=== PATIENT | male | born 1960 | race Caucasian/White ===

== ENCOUNTER 2018-01-30 20:18 | Inpatient (IN) | payer MEDICAID ==
[~2018-01-30] VITALS: Ht 162.6 cm; Wt 97.1 kg
[2018-01-30 21:50] VITALS: BP 129/89
--- NOTE | 2018-01-30 23:20 | NUR ---
RECEIVED REPORT ON PT FROM [facility] FROM NURSE HAMMOND. AT 2119 , PT ARRIVED FROM [facility] ON PRIVATE VEHICLE ACCOMPANIED BY SISTER AND NEPHEW. PT AMBULATES TO HIS ROOM. ALERT AWAKE ORIENTED X4. COOPERATIVE. VITALS SIGNS WITHIN NORMAL LIMT ON O2 SATURATION IS 93% on 2 l NC. COMPLAIN OF PAIN IN LEFT LOWER BACK WHEN COUGHING. TYLENOL TO BE GIVEN WHEN READY. PT STATES THAT HE HAS LOST 50 LBS IN THE PAST MONTHS, AND SOB HAS BEEN GOING ON FOR 4 DAYS. ASSESSEMENT PERFORMED AT BEDSIDE. LUNG SOUNDA ARE DIMINISHED. PT DID RECEIVE LASIX AT PREVIOUS FACILITY AND IS URINATING FRQUENTLY. ADMISSION HX OBTAINED REFER TO CHARTING. INFORMATION RECEIVED FORM PT AND FAMILY. PULMONARY CONSULT WAS CALLED ORDERED. MESSAGE LEFT OT ANSWERING [employer]NACE OPERATOR. AWAITNG CALL BACK FORM PHYSICIAN. DR DUNBAR WAS CALLED AND RECEIVED NEW ORDERS THAT WERE READ FROM PT CHART. LABS TO BE DRAWNED IN THE MORNING. PT SEEMS COMFORTABLE. HEAD OF BED ELEVATED TO PROMOTE CLEAR RESPIRATION. SCDS IN PLACE. MEDICATION TO BE ADMINISTERED ORDERED. SINUS TACHY ON THE MONITOR. RATE IN CONTROLED IN LOW 100S. SKIN IS INTACT. PT AMBULATES INDEPENDENTLY TO RESTROOM.
[2018-01-31] VITALS: BP 123/75
[2018-01-31 00:01] LABS: ABSOLUTE BASOPHILS 0.1 thou/uL (0.0-0.2); ABSOLUTE EOSINOPHILS 0.2 thou/uL (0.0-0.7); ABSOLUTE LYMPHOCYTES 1.1 thou/uL (0.8-5.3); ABSOLUTE MONOCYTES 1.1 thou/uL (0.0-1.2); ABSOLUTE NEUTROPHILS 7.1 thou/uL (1.6-8.1); BASOPHILS 0.8 %; EOSINOPHILS 2.5 %; HEMATOCRIT 43.8 % (42.0-52.0); HEMOGLOBIN 14.4 gm/dL (14.0-18.0); MCH 29.2 pg (26.0-34.0); MCHC 32.9 g/dL (28.0-37.0); MCV 88.8 fL (80.0-100.0); MONOCYTES 11.8 %; NUCLEATED RBCS 0 /100WBC; PLATELET COUNT* 421 thou/uL (150-400); POLYS 73.9 %; RBC 4.93 mil/uL (4.50-6.00); RDW-CV 13.7 % (10.5-14.5); WBC 9.6 thou/uL (4.0-11.0)
[2018-01-31 00:24] LABS: ALBUMIN 2.5 g/dL (3.4-5.0); CALCIUM 10.8 mg/dL (8.5-10.1); CREATININE 2.1 mg/dL (0.6-1.3); TOTAL BILIRUBIN 0.5 mg/dL (<0.1-1.0); TOTAL PROTEIN 8.5 g/dL (6.4-8.2)
[2018-01-31 04:00] VITALS: BP 130/68
[2018-01-31 05:26] LABS: ABSOLUTE BASOPHILS 0.1 thou/uL (0.0-0.2); ABSOLUTE EOSINOPHILS 0.3 thou/uL (0.0-0.7); ABSOLUTE LYMPHOCYTES 1.2 thou/uL (0.8-5.3); ABSOLUTE MONOCYTES 1.2 thou/uL (0.0-1.2); ABSOLUTE NEUTROPHILS 6.3 thou/uL (1.6-8.1); BASOPHILS 0.9 %; EOSINOPHILS 3.4 %; HEMATOCRIT 42.2 % (42.0-52.0); HEMOGLOBIN 13.9 gm/dL (14.0-18.0); LYMPHOCYTES 13.4 %; MCH 29.2 pg (26.0-34.0); MCV 88.5 fL (80.0-100.0); MONOCYTES 12.6 %; MPV 8.2 fl. (7.2-11.1); NUCLEATED RBCS 0 /100WBC; PLATELET COUNT* 408 thou/uL (150-400); POLYS 69.7 %; RBC 4.77 mil/uL (4.50-6.00); RDW-CV 13.6 % (10.5-14.5); WBC 9.1 thou/uL (4.0-11.0)
[2018-01-31 05:37] LABS: CALCIUM 10.8 mg/dL (8.5-10.1); POTASSIUM 4.3 mmol/L (3.5-5.1)
--- NOTE | 2018-01-31 07:30 | NUR ---
ASSUMED CARE OF PT ASSESSED AND DOCUMENTED. PT IS ON CARDIAC MONITER TRACING SR. HE IS ON 2L OF 02. PT IS A&O WITH NO C/O PAIN. VSS WNL. PT IS AFEBRILE. BED IS IN LOW POSITION CALL LIGHT IS IN REACH.
[2018-01-31 08:00] VITALS: BP 125/77
[2018-01-31 11:54] VITALS: BP 127/75
--- NOTE | 2018-01-31 11:55 | NUR ---
Pt is A&O. Resides at home alone. 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 Pt stated that he had [employer] health insurance, up until August, when he was dropped d/t his plan not being available any longer. Pt stated that he was paying $850/month for his insurance. Pt stated that [facility] was not able to locate another plan that would work for Pt. Pt does see Dr Brown, on a fee for service basis. No DME. No hx of HH or SNF. CM faxed facesheet to [facility], to determine if Pt would qualify for [place] [facility]. Following.
--- NOTE | 2018-01-31 13:07 | NUR ---
CALLED PHARMACY SPOKE WITH PATI. PT NEEDS INSULLIN.
[2018-01-31 15:54] VITALS: BP 112/66
--- NOTE | 2018-01-31 17:12 | NUR ---
PT HAS RESTED IN HIS ROOM. HE IS UP TO BEDSIDE CHAIR EATING DINNER. SPUTUM OBTAINED AND TAKEN TO LAB. EDUCATION GIVEN ON DEMAND. HOURLY ROUNDING COMPLETE. NEW ORDER FOR NS AT 75 NC HOUT X1DAY.
[2018-01-31 20:00] VITALS: BP 121/72
[2018-02-01] VITALS: BP 125/68
--- NOTE | 2018-02-01 03:59 | NUR ---
ASSUMED PT CARE AT 19:15 REPORT RECEIVED FROM NURSE. PT IS ALERT AWAKE ORIENTED X4. SINUS RYTHM ON THE MONITOR. NO COMPLAINT OF PAIN AT THIS MOMENT. MEDICATION WAS ADMINISTERED SCHEDULED. DID NOT NEED INSULIN PER HIS SLIDING SCALE. RECEIVED ZOSYN AT 2000 AND AT 04O0. HE REMAINS ON 2 L NC SATURATION IS 93%. ASSESSEMENT WAS PERFORMED AT BEDSIDE. REFER TO CHARTING. HE IS NOW RESTING IN BED. WILL CONTINIUE TO MONITOR DURING THE MORNING.
[2018-02-01 04:00] VITALS: BP 113/68
[2018-02-01 07:52] VITALS: BP 109/72
[2018-02-01 08:45] LABS: ALBUMIN 2.4 g/dL (3.4-5.0); CALCIUM 9.6 mg/dL (8.5-10.1); CREATININE 1.8 mg/dL (0.6-1.3); POTASSIUM 3.9 mmol/L (3.5-5.1); TOTAL BILIRUBIN 0.6 mg/dL (<0.1-1.0); TOTAL PROTEIN 6.7 g/dL (6.4-8.2)
[2018-02-01 12:00] VITALS: BP 130/67
[2018-02-01 15:42] VITALS: BP 124/76
--- NOTE | 2018-02-01 17:23 | NUR ---
ASSUMED CARE OF PT THIS AM ASSESSED AND DOCUMENTED. SEE CHART. PT HAS HAD NO S OR SX OF ADVERSE REACTION TO ABT. PT HAD 3U OF INSULLIN ITH HIS DINNER. VSS WNL. PT HAS BEEN AFEBRILE. HOURLY ROUNDING COMPLETE. EDUCATION GIVEN ON DEMAND.
[2018-02-01 19:34] VITALS: BP 133/84
[2018-02-02] VITALS: BP 115/68
[2018-02-02 04:00] VITALS: BP 144/88
[2018-02-02 04:34] LABS: HEMATOCRIT 40.1 % (42.0-52.0); HEMOGLOBIN 13.3 gm/dL (14.0-18.0); MCH 29.3 pg (26.0-34.0); MCHC 33.2 g/dL (28.0-37.0); MCV 88.2 fL (80.0-100.0); MPV 8.1 fl. (7.2-11.1); NUCLEATED RBCS 0 /100WBC; PLATELET COUNT* 371 thou/uL (150-400); RBC 4.55 mil/uL (4.50-6.00); RDW-CV 13.5 % (10.5-14.5); WBC 8.2 thou/uL (4.0-11.0)
--- NOTE | 2018-02-02 04:49 | NUR ---
PT AAOX4 RESP REG AND UNLAOBRED SKIN W/D NO ACUTE DISTRESS NOTED. O2 2L BNC INTACT. PT NOTED TO HAVE A COUGHWITH BLOOD TINGED SPUTUM. PT STATED HAS BEEN HAVING ALL DAY. RESP REG AND UNLABORED. PT IS CONCERNED IN THE CAUSE OF HIS ISSUES. VSS AND NO ACUTE CHANGES DURING SHIFT WILL CONTINUE TO MONITOR, TELEMETRY PACK INTACT WITH ALARMS SET.
[2018-02-02 04:59] LABS: CALCIUM 10.1 mg/dL (8.5-10.1); CREATININE 1.6 mg/dL (0.6-1.3); POTASSIUM 4.3 mmol/L (3.5-5.1)
[2018-02-02 05:11] LABS: ALBUMIN 2.4 g/dL (3.4-5.0); CALCIUM 9.5 mg/dL (8.5-10.1); CREATININE 1.6 mg/dL (0.6-1.3); PHOSPHORUS* 3.2 mg/dL (2.5-4.9); POTASSIUM 4.7 mmol/L (3.5-5.1)
[2018-02-02 05:30] LABS: ABSOLUTE LYMPHOCYTES 0.7 thou/uL (0.8-5.3); ABSOLUTE NEUTROPHILS 7.5 thou/uL (1.6-8.1); ANISOCYTOSIS 1+; PLATELET ESTIMATE ADEQUATE; POIKILOCYTOSIS 1+
[2018-02-02 08:00] VITALS: BP 137/78
--- NOTE | 2018-02-02 11:31 | CON ---
[address] [address] CONSULTATION Name: KEANU KAPOOR Room: [address] IN M.R.#: [id number] Admission: 01/30/18 Attend Phys: Huang Rodarte MD Discharge: Date of : 62 Report #: [id number] THIS REPORT FOR: //name// CC: Huang Nevarez [facility] DATE OF SERVICE: 02/01/2018 ATTENDING PHYSICIAN: Dr. Rodarte. PRIMARY CARE PHYSICIAN: Ronen Oreilly MD The patient is located in room 206. INDICATION FOR CONSULTATION: Left lung infiltrate and atelectasis, cough. CLINICAL SUMMARY: The patient is a pleasant 57-year-old male who was seen and evaluated in [place], then transferred to [place] yesterday. The patient had a 3-4 week history of cough, shortness of breath. He states he had a 50-pound weight loss with diuretics. He states he has also lost some muscle mass also. He has had some nonmassive hemoptysis and a cough for the last 4 weeks. He denies any fever, chills or sweats. He does notice he has been more short of breath at that time. He was seen by the physician in [place], had a chest x-ray, showed left lung atelectasis and then was transferred here. He had a CT of the abdomen done here, and he just had a CT of the chest done this morning, its results are not back yet on the computer screen yet. He is a little bit more short of breath. He thinks the breathing treatments do help him. He has been coughing up some phlegm. He has been on 2 liters with a sat of 94%. We are asked to see him and evaluate him for a possible bronchoscopy. He has no prior history of lung cancer, any other cancers that he is aware of. PAST MEDICAL HISTORY: He has a history of hypertension. He has some chronic renal insufficiency, which is a new onset. He also has some mild glucose intolerance. He has been on some oral hypoglycemics. He is not on any insulin, and he also has some mild hyperlipidemia. This all occurred within the last month or two. ALLERGIES: He has no known medical allergies. CURRENT MEDICATIONS: Include he is on Lovenox 30 mg at bedtime and metoprolol 25 mg daily, aspirin 81 mg daily, amlodipine 5 mg daily, Protonix 40 mg daily, DuoNeb treatments 4 times a day. He is on Zosyn 3.375 grams IV q.8 hours., [place] [address] CONSULTATION Name: KEANU KAPOOR Room: [address] IN .R.#: [id number] Admission: 01/30/18 Attend Phys: Huang Rodarte MD Discharge: Date of : 62 Report #: [id number] FAMILY HISTORY: Negative for premature cardiopulmonary disease. No history of lung cancer. SOCIAL HISTORY: He is and lives outside [place]. 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 He denies any asbestos exposure. He has always been a fairly heavy tobacco chewer of 4-5 packs of snuff a day. He states he has never smoked cigarettes or tobacco. He has been doing this for 40 years though. He will have occasional beer socially. Denies any illicit drug use. No history of travel or sick or ill contacts recently. REVIEW OF SYSTEMS: A 14-point review of systems reviewed and negative except for the pertinent positives noted in HPI. PHYSICAL EXAMINATION: GENERAL: A pleasant 57-year-old male, in no acute distress. He is lying in bed and can talk to me in full sentences. VITAL SIGNS: His blood pressure is 110/72, his heart rate is 90, respirations are 16, and he is afebrile at this time. He is 5 feet 8 inches tall, weight is 92 kilograms or about 210 pounds, BMI is 35. HEENT: Pupils are reactive. Mucous membranes are moist, no increase in jugular venous pressure. NECK: No cervical or supraclavicular adenopathy is noted. CHEST: Shows diminished breath sounds on his left thorax without any wheeze or rhonchi. No inspiratory stridor is noted. Right lung exam is clear without any expiratory wheeze. HEART: Regular rate and rhythm without murmur, gallop or rub. Heart rate is 94. ABDOMEN: Soft, without masses or megaly. EXTREMITIES: No calf tenderness. No cyanosis, clubbing or edema. SKIN: Dry and intact. NEUROLOGIC: He is nonfocal. He moves all fours to commands, can lift his head off the pillow without problems. He has good strength in his upper and lower extremities. LABORATORY DATA: Hemoglobin is 13.9, white count is 9100, normal differential, platelets are 408,000. Electrolytes are drawn this morning, show sodium 137, potassium 3.9, carbon dioxide is 23, anion gap is upper limits of normal at 14. BUN is 54, creatinine is 1.8. Previous BUN was 65, with a creatinine of 2.0. His glucose is 130, ALT is slightly elevated at 72 and alkaline phosphatase is elevated at 192. Albumin is 2.4. No ABGs on the patient. CT of the abdomen and pelvis, which I reviewed, shows at least left lower lobe atelectasis and cut down on the higher thoracic cuts. You can see the mike and then see the left mainstem bronchus. The left lower lobe bronchus seems like it cuts off abruptly. I do not see an actual mass lesion, but there is a cutoff sign. There was then total atelectasis and volume loss on the left side. Same with the chest x-ray, there is volume loss and mediastinal shift [place] [address] CONSULTATION Name: KEANU KAPOOR Room: [address] IN ..#: [id number] Admission: 01/30/18 Attend Phys: Huang Rodarte MD Discharge: Date of : 62 Report #: [id number] adenopathy is seen on the right. IMPRESSION: Left lung mass with atelectasis, most likely has left lower lobe endobronchial lesion or left mainstem endobronchial lesion. Could be a benign polyp such as a carcinoid lesion or something of that nature. Certainly, with his tobacco use, again worried about squamous cell carcinoma with endobronchial narrowing and endobronchial obstruction. PLAN: We will give a few doses of IV steroids. Renal has seen the patient, and they are trying to get his BUN and creatinine to come down. We will set him up in a day or two for fiberoptic bronchoscopy, most likely on Tuesday and see if we can find endobronchial lesion. We will obtain some biopsies and some specimens. It would be better to have him off the subcutaneous Lovenox and the aspirin at that time. I discussed the indications, benefits and risks of the procedure to see if we can get a tissue diagnosis and make sure it is not just something benign like mucus plugging. I think that will not be the situation now. Thanks again for allowing us to participate in this man's care. We will continue to follow up along with you. <ELECTRONICALLY SIGNED> By: Duke Márquez MD 02/02/18 1131 1222 [id number] Márquez MD /nt
--- NOTE | 2018-02-02 11:58 | NUR ---
RECEIVED REPORT FROM DONTE JARVIS. ASSUMED CARE OF PT AROUND 0730. PT A&O X4. VSS. O2 SAT 92% ON 2L PER NC. DISPLAY SCREEN FABRICATOR IN PLACE TRACING SR TO ST. AM ASSESSMENT AND VITALS COMPLETED CHARTED. IV TO LEFT HAND INTACT AND INFUSING IVF. MEDICAL RECORDS FROM CLINIC IN [place] CALLED TO DR. ARAGON REQUESTED. PT DENIES PAIN OR DISCOMFORT. PT TO HAVE BONE SCAN AND CHEST CT TODAY - PT AWARE. PT EATING AND DRINKING WITHOUT ISSUE. UA OBTAINED AND SENT TO TO LAB. PT CURRENTLY SITTING UP IN BED. LOW FALL RISK PRECAUTIONS IN PLACE. CALL LIGHT WITHIN REACH. HOURLY ROUNDING PERFORMED. WCTM.
[2018-02-02 12:16] VITALS: BP 137/73
[2018-02-02 12:44] LABS: URINE BILIRUBIN NEGATIVE (Negative); URINE BLOOD 1+ (Negative); URINE CLARITY CLEAR; URINE COLOR YELLOW; URINE GLUCOSE-RANDOM NEGATIVE (Negative); URINE KETONES TRACE (Negative); URINE LEUKOCYTES NEGATIVE (Negative); URINE NITRITE NEGATIVE (Negative); URINE PROTEIN TRACE (Negative); URINE SPECIFIC GRAVITY 1.015 (1.005-1.030); URINE UROBILINOGEN 0.2 E.U./dl (0.2-1.0)
[2018-02-02 13:17] LABS: BACTERIA 1-9 Few /HPF (None Seen); CASTS None Seen /LPF (None Seen); MUCUS 0-3 Light strn/LPF (None Seen); SQUAMOUS 0-3 Few /LPF (0-3); URIC ACID CRYSTALS >10 Many /LPF (None Seen); URINE RBC 0-2 Rare /HPF (0-2); URINE WBC 0-5 Rare /HPF (0-5)
--- NOTE | 2018-02-02 14:40 | NUR ---
Spoke with Pt's niece in law regarding insurance options. NIL to contact her asset accountant to see if she can assist with securing ins for Pt. RICKY left message for Ainsley with [employer].
[2018-02-02 16:08] VITALS: BP 121/63
--- NOTE | 2018-02-02 18:42 | NUR ---
VSS. PT REMAINS A&O X4. O2 SAT 92% ON 2L PER NC. PT COMPLTED MRI HEAD, BONE SCAN, CT CHEST, AND RENAL U/S THIS SHIFT. PT TO BE NPO AFTER MIDNIGHT FOR BRONCHOSCOPY TOMORROW MORNING. PT EATING AND DRINKING WIHTOUT ISSUE. PT UP AD ALLYSSA TO BATHROOM WITH O2 EXTENSION TUBING AND IV, VOIDING WITHOUT ISSUE. PT HAS SPOKEN WITH FAMILY ON CELL PHONE TODAY. PT HAS DENIED PAIN OR DISCOMFORT THROUGHOUT THE SHIFT. IV TO LEFT HAND INTACT AND INFUSING IVF. PT CURRENTLY WATCHING TV IN BED. CALL LIGHT IS WITHIN REACH, LOW FALL RISK PRECAUTIONS ARE IN PLACE. HOURLY ROUNDING PERFORMED. WCTM FOR DURATION OF SHIFT.
[2018-02-02 19:35] VITALS: BP 131/77
--- NOTE | 2018-02-02 22:55 | CON ---
[address] [address] CONSULTATION Name: KEANU KAPOOR Room: [address] IN .R.#: [id number] Admission: 01/30/18 Attend Phys: Huang Rodarte MD Discharge: Date of : 62 Report #: [id number] THIS REPORT FOR: //name// CC: Huang Brown DATE OF SERVICE: 02/01/2018 REASON FOR CONSULTATION: Possible lung cancer. HISTORY OF PRESENT ILLNESS: A 57-year-old male who was transferred from outside facility after he has been having symptoms of left-sided back pain with hemoptysis and shortness of breath. He underwent a CT scan on 01/30. However, there is volume loss on the left side with atelectasis and consolidation of the left lung. Trace of left pleural effusion with mediastinal shift to the left. Complete occlusion of the left mainstem bronchus. Trace effusion is present. Subcarinal adenopathy was present. Small aortopulmonary window lymph nodes present. The patient was admitted for a pulmonary evaluation and for possible bronchoscopy. The patient denies any headaches, seizure-like activity. He has been recently diagnosed with hypertension and diabetes. Per the patient, he was put on diuretics and he lost around 50 pounds in the last month. REVIEW OF SYSTEMS: All systems reviewed. It was negative except above. PAST MEDICAL HISTORY: Congestive heart failure, dyslipidemia, bicuspid aortic valve, hypertension, diabetes. PAST SURGICAL HISTORY: None. FAMILY HISTORY: Positive for hypertension, atherosclerosis. SOCIAL HISTORY: The patient chews tobacco for the last 42 years. He drinks 4-5 beers on a daily basis. ALLERGIES: No known allergies. PHYSICAL EXAMINATION: VITAL SIGNS: Today, temperature 36.6, pulse 94, respirations 18, blood pressure is 109/72. GENERAL: The patient was sitting in chair, was not in acute distress. LUNGS: No breathing sounds on the left side. HEART: Regular rate and rhythm. S1, S2 within normal limits. ABDOMEN: Soft, nontender, nondistended, bowel sounds positive. LABORATORY DATA: Labs on 01/31: WBC 9.1, hemoglobin 13.9, platelets [address] [address] CONSULTATION Name: KEANU KAPOOR Room: [address] IN [facility]#: [id number] Admission: 01/30/18 Attend Phys: Huang Rodarte MD Discharge: Date of : 62 Report #: [id number] Calcium is 10.8, creatinine 2.0. ALT is 38, AST 77, alkaline phosphatase 193. A chest x-ray, which was done yesterday, showed a whiteout of the left lung suggestive of atelectasis/pleural effusion. ASSESSMENT AND PLAN: A 57-year-old male who has been chewing tobacco for the last 42 years, was admitted because of a collapse of the left lung with endobronchial lesion and mediastinal adenopathy. His clinical picture is very concerning of lung cancer primary with mediastinal and malignant pleural effusion. In addition, he was found to have hypercalcemia. RECOMMENDATIONS: Agree with a Pulmonary consultation for bronchoscopy and to establish the diagnosis. In the meantime, I would like to complete staging by obtaining brain MRI with and without contrast, CT of the abdomen and bone scan. In terms of his hypercalcemia, it is more common in a small cell and squamous cell carcinoma. I do recommend repeating his calcium today and if still elevated, one dose of pamidronate will be needed. I will follow this patient during hospitalization. <ELECTRONICALLY SIGNED> By: Maria Elena Mcfadden MD 02/02/18 2255 0809 [id number] Elena Mcfadden MD /nt
[2018-02-03] VITALS (7 sets, daily range): BP systolic 120–152; BP diastolic 72–92
--- NOTE | 2018-02-03 00:11 | NUR ---
ASSUMED CARE OF PT AT 1900. PT IS ALERT AND ORIENTED. VSS. PERRLA. NO COMPLAINTS OF PAIN. PT IS SOA WITH EXERTION. CONSENT SIGNED FOR BRONCHOSCOPY. PT IS SLEEPING COMFORTABLY IN BED. RESPIRATIONS ARE EVEN AND NONLABORED. WILL CONTINUE TO MONITOR PT.
[2018-02-03 04:51] LABS: ABSOLUTE LYMPHOCYTES 0.5 thou/uL (0.8-5.3); ABSOLUTE MONOCYTES 0.6 thou/uL (0.0-1.2); ABSOLUTE NEUTROPHILS 13.3 thou/uL (1.6-8.1); HEMATOCRIT 38.7 % (42.0-52.0); HEMOGLOBIN 12.8 gm/dL (14.0-18.0); LYMPHOCYTES 3.5 %; MCHC 32.9 g/dL (28.0-37.0); MCV 88.1 fL (80.0-100.0); MONOCYTES 3.9 %; MPV 8.2 fl. (7.2-11.1); NUCLEATED RBCS 0 /100WBC; PLATELET COUNT* 372 thou/uL (150-400); POLYS 92.6 %; RDW-CV 13.6 % (10.5-14.5); WBC 14.3 thou/uL (4.0-11.0)
[2018-02-03 05:30] LABS: ALBUMIN 2.2 g/dL (3.4-5.0); CALCIUM 9.5 mg/dL (8.5-10.1); CREATININE 1.6 mg/dL (0.6-1.3); POTASSIUM 3.9 mmol/L (3.5-5.1); TOTAL BILIRUBIN 0.3 mg/dL (<0.1-1.0); TOTAL PROTEIN 7.1 g/dL (6.4-8.2)
[2018-02-03 10:13] LABS: GLYCOHEMOGLOBIN (HGB A1C) 7.8 % (4.8-5.6)
--- NOTE | 2018-02-03 10:35 | NUR ---
Krishan from [facility] attempted to reach Pt, Pt out of the room having bronch, CM asked Krishan to call back after lunch.
--- NOTE | 2018-02-03 17:08 | NUR ---
PT TO BRONCH THIS AM. PT TOLERATED WELL. PT UPSET ABOUT FINANCIAL STRAIN OF BEING IN HOSPITAL AND POSSIBLE CANCER. PT TOLERATING PO WELL AFTER BRONCH. DENIES NEEDS. REMAINS ON 02@2L NC. PT UP IN ROOM WITH STEADY GAIT
[2018-02-04] VITALS: BP 117/62
[2018-02-04 02:09] LABS: IgG 981 mg/dL (700-1600); IgM 54 mg/dL (20-172)
[2018-02-04 04:00] VITALS: BP 131/67
[2018-02-04 05:02] LABS: ABSOLUTE LYMPHOCYTES 0.8 thou/uL (0.8-5.3); ABSOLUTE MONOCYTES 1.1 thou/uL (0.0-1.2); ABSOLUTE NEUTROPHILS 10.8 thou/uL (1.6-8.1); BASOPHILS 0.1 %; HEMATOCRIT 37.5 % (42.0-52.0); HEMOGLOBIN 12.3 gm/dL (14.0-18.0); MCHC 32.9 g/dL (28.0-37.0); MCV 88.1 fL (80.0-100.0); MONOCYTES 8.9 %; MPV 8.3 fl. (7.2-11.1); NUCLEATED RBCS 0 /100WBC; PLATELET COUNT* 365 thou/uL (150-400); RBC 4.26 mil/uL (4.50-6.00); RDW-CV 13.4 % (10.5-14.5); WBC 12.7 thou/uL (4.0-11.0)
--- NOTE | 2018-02-04 05:24 | NUR ---
PATIENT PARTIALLY PROGRESSING TOWARDS GOALS: O2 SATS MAINTAINED ON 2L O2 NC. NO HEMOPTYSIS NOTED. PATIENT HAS C/O PAIN IN RIGHT KNEE PARTIALLY RELIEVED WITH ACETAMINOPHEN AND HEAT APPLICATION, HOWEVER, PATIENT HAS BEEN UNABLE TO SLEEP DUE TO PAIN. PATIENT OFFERED IV PAIN MEDICATION, HOWEVER, PATIENT REFUSING. PATIENT AD ALLYSSA, TOLERATING ACTIVITY WELL. HOURLY ROUNDING OBSERVED. CALL LIGHT WITHIN REACH
[2018-02-04 05:25] LABS: ALBUMIN 2.3 g/dL (3.4-5.0); CALCIUM 9.1 mg/dL (8.5-10.1); CREATININE 1.5 mg/dL (0.6-1.3); POTASSIUM 3.7 mmol/L (3.5-5.1); TOTAL BILIRUBIN 0.3 mg/dL (<0.1-1.0); TOTAL PROTEIN 6.7 g/dL (6.4-8.2)
[2018-02-04 07:07] LABS: IgA 346 mg/dL (90-386)
[2018-02-04 08:00] VITALS: BP 129/86
--- NOTE | 2018-02-04 08:48 | PROC ---
[address] [address] PROCEDURE REPORT Name: KEANU KAPOOR Room: [address] IN M.R.#: [id number] Admission: 01/30/18 Attend Phys: Huang Rodarte MD Discharge: Date of : 62 Report #: [id number] THIS REPORT FOR: //name// CC: Huang Mcfadden MD ____ ____ DATE OF SERVICE: 02/03/2018 PRIMARY CARE PHYSICIAN: , [place], [place]. PREOPERATIVE DIAGNOSES: Large left main stem lesion, left lung with left lung atelectasis, also has liver lesion and left adrenal lesion. POSTOPERATIVE DIAGNOSES: Large left main stem lesion, left lung with left lung atelectasis, also has liver lesion and left adrenal lesion, vascular appearing lesion that totally obstructs left main stem and propagates up into proximal trachea by two tracheal rings, vascular lesion, which was adherent to the anterior tracheal wall. Differentials include carcinoid lesion versus bronchogenic carcinoma. SPECIMENS: Biopsies obtained. Also, a cytology brush and wash. COMPLICATIONS: None. The patient is a 57-year-old male who states he is a nonsmoker, but chews tobacco. Has a 4-week history of cough, hemoptysis and shortness of breath. Chest x-ray and CT scan shows large left main stem lesion with left lung atelectasis with also a liver lesion and adrenal lesion. Bronchoscopy is indicated to evaluate for endobronchial lesion to obtain specimens. Indications, benefits, risks of bronchoscopy, possible biopsy were explained. He understood and agreed. Informed consent was obtained. Prior to the procedure, the patient's chest exam showed absent breath sounds on the left, clear breath sounds on the right. CV was in sinus tachycardia with heart rate of 104. He was mildly hypoxic on 2-3 liters, his sats were 93-94% and otherwise, he was stable. Appropriate verbal timeout was taken. It was correct procedure for the correct patient. Premedication consists of meperidine 50 mg, Robinul 0.1 mg IM and then midazolam 4 mg slow IV push preoperatively and intraoperatively in 1 mg increments. O2 was at 6 liters per nasal cannula and O2 sat did not drop below 89%, most of the time is 93% and above. Flexible fiberoptic bronchoscopy carried out via left transnasal route subsegmental level. Nasopharynx and vocal cords were [place] [address] PROCEDURE REPORT Name: KEANU KAPOOR Room: [address] IN M.R.#: [id number] Admission: 01/30/18 Attend Phys: Huang Rodarte MD Discharge: Date of : 62 Report #: [id number] oppose normally and there was no left vocal cord paralysis. Trachea was abnormal with an abnormal lesion in growth, exophytic mass emanating from the left mainstem and extending up into the distal two tracheal rings. The right lung could still be entered and the right lung was open and patent without any endobronchial lesions or mucosal abnormalities. This was a vascular-appearing lesion. There was some old blood around the lesion. The lesion was adherent to the anterior tracheal wall. I could not move it off the anterior tracheal wall, seen if it was a polypoid lesion, etc. Initially because the lesion was vascular, pictures were obtained and we did a bronchial brush through 3 slides and fix. We got good specimens on that and it was slightly bloody, but there was no vigorous bleeding. Then, endobronchial biopsies x 6 were obtained with a biopsy forceps. These were placed in formalin. Good specimen return was noted. I did this towards the anterior tracheal wall part of the lesion. It appeared to be where most of the possible tumor or growth was and stayed away from the clot-looking area. There was minimal amount of bleeding from this. We used 2 aliquots of Xylocaine with epinephrine to slow the bleeding. There was no further bleeding and then, third was a bronchial wash for cytology, which will be sent again to evaluate for carcinoid versus stage IV bronchogenic CA. Bronchoscope was then withdrawn without incident. The patient tolerated procedure well without complications. Working diagnosis at the end of procedure was large left mainstem and proximal tracheal lesion, either a carcinoid lesion or stage IV bronchogenic carcinoma. He is not a resection candidate. The patient is an inpatient and Oncology is already following the patient at this time. We will await the biopsy results and proceed from there. He may need some fairly rapid radiation therapy if it is amenable to see if we can shrink the tumor and keep his airway open. Bronchial stent may be another consideration at some point in time. He would have to be transferred for that. No other complications to the procedure. <ELECTRONICALLY SIGNED> By: Duke Márquez MD 02/04/18 0848 1102 [id number] Márquez MD /yesy
[2018-02-04 11:35] VITALS: BP 137/70
--- NOTE | 2018-02-04 12:18 | NUR ---
RECEIVED REPORT FROM NOAH JARVIS. ASSUMED CARE OF PT AROUND O730. PT A&OX4, VSS, O2 SAT 98% ON 2L PER NC. PT TIRED THIS MORNING, STATES HE DID NOT SLEEP WELL. PT EDUCATED THAT BENA[facility]YL MEDICATIN IS ON HIS EMAR AND THAT HE CAN REQUEST THAT AT NIGHT TIME TO ASSIST WITH SLEEP. PT COMMUNICATES UNDERSTANDING. VP CUSTOMER SERVICE IN PLACE TRACING ST. AM ASSESSMENT AND VITALS COMPLETED CHARTED. IV TO RIGHT AC INTACT AND INFUSING ANTIBIOTICS. PT EATING AND DRINKING WITHOUT ISSUE. PT ABLE TO BE UP AD ALLYSSA IN ROOM, O2 EXTENSION TUBING PROVIDED. PT AWAITING BRONCHOSCOPY BIOPSIES. PT DENIES PAIN OR DISCOMFORT AT THIS TIME - STATES HE RIGHT KNEE WAS HURTING LAST NIGHT BUT THAT IT IS "OKAY RIGHT NOW". PT CURRENTLY RESTING IN BED WATCHING TV. LOW FALL RISK PRECAUTIONS IN PLACE. HORULY ROUNDING PERFORMED. CALL LIGHT IS WITHN REACH. WCTM.
[2018-02-04 16:00] VITALS: BP 123/66
--- NOTE | 2018-02-04 18:28 | NUR ---
VSS. PT REMAINS A&O X4. O2 SAT >90% ON 2L PER NC. PT EATING AND DRINKING WITOUT ISSUE. MEDS PER EMAR. PT HAD FAMILY VISIT THIS AFTERNOON. PT COMPLAINED OF RIGHT KNEE PAIN - IV PAIN MEDICATION WITH RELIEF - PT FINALLY ABLE TO SLEEP. PT UP AD ALLYSSA TO VOID. BM THIS AM. PT SEEMS SAD THIS SHIFT - ASKED PT IF HE WAS FEELING BAD AND HE STATED "I'M JUST READY TO GET BACK HOME". REASSURANCE GIVEN. PT CURRENTLY RESTING IN BED. LOW FALL RISK PRECAUTIONS IN PLACE. CALL LIGHT IS WITHIN REACH, HOURLY ROUNDING PERFORMED. WCTM FOR DURATION OF SHIFT.
[2018-02-04 19:45] VITALS: BP 101/74
[2018-02-05] VITALS: BP 140/73
--- NOTE | 2018-02-05 03:21 | NUR ---
RECEIVED REPORT AND ASSUMED CARE AT 1900. VSS. CARDIAC MONITORING IN PLACE. PT DENIES ANY COMPLAINTS OF PAIN. ASSESSMENT COMPLETED CHARTED. MEDICATION ADMIN PER EMAR. PT UP AD ALLYSSA IN ROOM, 2LNC. BED IN LOWEST POSITION, CALL LIGHT WITHIN REACH. DISCUSSED PLAN OF CARE WITH PT, VERBALIZED UNDERSTANDING. HOURLY ROUNDING COMPLETED, ALL NEEDS MET. WILL CONTINUE TO MONITOR FOR REMAINDER OF THE SHIFT
[2018-02-05 04:00] VITALS: BP 136/76
[2018-02-05 08:00] VITALS: BP 118/71
[2018-02-05 12:21] VITALS: BP 120/70
[2018-02-05 16:06] VITALS: BP 120/70
--- NOTE | 2018-02-05 16:34 | NUR ---
PT UP IN ROOM WITH STEADY GAIT. REMAINS ON O2@2L NC. PT SOA WITH EXERTION. DENIES PAIN. GOOD APPETITE.
[2018-02-05 19:50] VITALS: BP 120/72
[2018-02-06] VITALS: BP 106/71
[2018-02-06 03:43] VITALS: BP 119/72
--- NOTE | 2018-02-06 06:12 | NUR ---
END SHIFT: PT RESTED WELL. NO COMPLAINTS. NO PAIN. REMAINS ON 2L NC. SR/ST ON MONITOR. ASSESSMENT UNCHANGED. VSS. SAFETY PRECAUTIONS IN PLACE. CALL LIGHT IN REACH. PERFORMED HOURLY ROUNDING. WILL CONT TO MONITOR.
[2018-02-06 08:00] VITALS: BP 116/82
--- NOTE | 2018-02-06 09:45 | NUR ---
CM met with Pt to discuss disposition. Pt stated that he wants to fight, he wants to live as long as he can. CM left lisa Schmitz at [facility], requesting that she make contact with Pt today, anticipate dc soon. Cm discussed possible need for home o2, Pt stated that he has a credit card and is able to afford the o2 if needed. Following for disposition.
[2018-02-06 10:35] LABS: HEMATOCRIT 41.1 % (42.0-52.0); HEMOGLOBIN 13.5 gm/dL (14.0-18.0); MCH 28.9 pg (26.0-34.0); MCHC 32.9 g/dL (28.0-37.0); MCV 87.7 fL (80.0-100.0); NUCLEATED RBCS 0 /100WBC; PLATELET COUNT* 329 thou/uL (150-400); RBC 4.68 mil/uL (4.50-6.00); RDW-CV 13.2 % (10.5-14.5); WBC 11.6 thou/uL (4.0-11.0)
[2018-02-06 10:37] LABS: ALBUMIN 2.3 g/dL (3.4-5.0); CREATININE 1.2 mg/dL (0.6-1.3); POTASSIUM 3.7 mmol/L (3.5-5.1); TOTAL BILIRUBIN 0.5 mg/dL (<0.1-1.0); TOTAL PROTEIN 6.2 g/dL (6.4-8.2)
[2018-02-06 11:10] LABS: ABSOLUTE BASOPHILS 0.1 thou/uL (0.0-0.2); ABSOLUTE LYMPHOCYTES 0.8 thou/uL (0.8-5.3); ABSOLUTE MONOCYTES 0.7 thou/uL (0.0-1.2); PLATELET ESTIMATE ADEQUATE
[2018-02-06 11:11] LABS: POIKILOCYTOSIS Occasional
--- NOTE | 2018-02-06 11:43 | NUR ---
VSS, ASSUMED CARE IN THE AM, ASSESSMENT PERFORMED AND CAHRTED. FALL PRECAUTIONS IN PLACE AND CALL LIGHT IN REACH, PT IS A&O4 AND ON 2L NC UP AD ALLYSSA AND DENIES ANY PAIN AT THIS TIME, PT GOAL IS TO IMPROVE BREATHING AND WALK UNIT, WILL FOLLOW WITH PLAN OF CARE.
[2018-02-06 12:27] VITALS: BP 131/78
[2018-02-06 15:31] VITALS: BP 118/78
[2018-02-06 17:10] LABS: KAPPA FREE LIGHT CHAINS 24.8 mg/L (3.3-19.4); LAMBDA FREE LIGHT CHAINS 15.4 mg/L (5.7-26.3)
--- NOTE | 2018-02-06 18:13 | NUR ---
vss, PT IS PROGRESSING TOWARDS GAOL, HIS BREATHING HAS IMPROVED AND HE HAS BEEN UP IN ROOM, PT IS STILL TRACING SR ON THE MONITOR AND IS ON 1L NC, PT DENIES ANY PAIN, AND HOURLY ROUNDS HAVE BEEN COMPLETED,
[2018-02-06 20:00] VITALS: BP 138/85
[2018-02-07] VITALS: BP 113/76
[2018-02-07 04:00] VITALS: BP 132/77
--- NOTE | 2018-02-07 06:04 | NUR ---
PATIENT SLEPT MOST OF THE NIGHT. IV ANTIBIOTICS WERE GIVEN ORDERED. PATIENT HAD NO COMPLAINTS OF PAIN. PATIENT IS POSSIBLY GOING HOME TODAY. WILL CONTINUE TO MONITOR.
[2018-02-07 08:00] VITALS: BP 125/85
[2018-02-07] MEDS ORDERED: NORCO 5-325 TA1 EACH PO (10:47)
[2018-02-07] MEDS ORDERED: PREDNISONE 10 M10 MG PO (11:02)
[2018-02-07] MEDS ORDERED: AUGMENTIN 875-1 EACH PO (11:05)
[2018-02-07] MEDS ORDERED: PROTONIX40 M1 PO (11:07)
[2018-02-07] MEDS ORDERED: IPRAT-ALBUT 0.5-3 ML INH (11:16)
[2018-02-07] MEDS ORDERED: NEBULIZER MISCELL (11:17)
[2018-02-07] MEDS ORDERED: ALBUTEROL SULFAT2 MG PO (11:21)
[2018-02-07] MEDS ORDERED: GLUCOTROL5 MG PO (11:23)
[2018-02-07] MEDS ORDERED: COZAAR 25 MG TA25 M1 PO (11:26)
--- NOTE | 2018-02-07 12:00 | NUR ---
VSS, ASSUMED CARE IN THE AM, ASSESSMENT PERFORMED AND CHARTED, FALL PRECAUTIONS IN PLACE AND CALL LIGHT IN REACH, PT IS A&O4, SR ON THE MONITOR, AND UP AD ALLYSSA ON RA O2 NEEDS, NONE, PT DENIES ANY PAIN, PT GOAL IS TO D/C TO HOME ON DAY OF CARE. AT THIS TIME I HAVE RECIEVED D/C OEDERS AND FILLED OUT D/C INSTRUCTIONS. GAVE D/C INSTRUCTIONS AND AND MEDICATIONS INSTRUCTIONS, IV AND TELE MONITOR HAVE BEEN REMOVED AND HOURLY ROUNDS COMPLETED, PT GATHERED AND BELONGINGS AND DENIES ANY QUESTIONS AT TIME OF D/C. PT TAKEN OUT VIA WHEEL CHAIR TO CAR.
[2018-02-07 13:06] VITALS: BP 125/85
--- NOTE | 2018-02-07 16:10 | NUR ---
Pt to potato picker a nebulizer at [facility] for $26.95. Ainsley from [facility] was here and initiated Medicaid application. Cm provided clinical documentation to be submitted to expediate his medicaid manjinder. Nephew here and will transport home.
--- NOTE | 2018-02-14 09:30 | NUR ---
Spoke with Dr Lane, informed that of Pt's lung CA dx and the desire to start chemo, informed that Pt's MO MARKOS would need to be activatated prior to treatments beginning. CM left for Ainsley with [facility], to check the status of Pt's MARKOS manjinder and to see when a determination can be expected. Following.
--- NOTE | 2018-02-19 12:47 | CON ---
[address] [address] CONSULTATION Name: KEANU KAPOOR Room: [address] IN M.R.#: [id number] Admission: 01/30/18 Attend Phys: Huang Rodarte MD Discharge: 02/07/18 Date of : 62 Report #: [id number] THIS REPORT FOR: //name// CC: Huang Armas DATE OF SERVICE: 02/06/2018 [facility] REFERRING PHYSICIANS: Include Dr. Huang Rodarte, Dr. Roque Brown, also Dr. Maria Elena Mcfadden, Dr. Duke Márquez, Dr. Ankush Zuleta, Dr. Korina Lawson, and Dr. Carito Armas. PRIMARY SITE AND HISTOPATHOLOGY: The patient has findings consistent with a stage IV lung cancer. HISTORY OF PRESENT ILLNESS: The patient is a 57-year-old gentleman who was transferred from another facility because he was found to have collapse of his left lung and a persistent cough. He was admitted on 01/30/2018 and at that time, an x-ray of the chest showed atelectasis and a pleural effusion around the left lung. He had a CT of the abdomen and pelvis on 02/01/2018 which revealed a left adrenal masses and lytic pelvic bone lesions compatible with metastatic disease. He also had an ultrasound of the kidneys on 02/01/2018, which revealed a left adrenal mass. He also had a chest CT on 02/02/2018, which showed an endobronchial mass at the left main stem bronchus with extension to the mike and trachea, pleural fluid in the left hemithorax, mediastinal adenopathy and he also had a medial right liver lesion measuring 2.1 cm.x 2.4 cm. He had a head MRI on 02/02/2018, which showed nonspecific findings which was consistent with small vessel ischemic disease. He had a bone scan on 02/02/2018 which revealed abnormal activity in the right proximal humerus and the right femur and left femur consistent with osseous metastatic disease. He had venous Dopplers of his lower extremities on 02/04/2019 which showed no evidence of deep venous thrombosis. He had a bronchoscopy on 01/30/2018 and the washings were suspicious for malignancy. The biopsy showed atypical glandular cells and he has been seen by the medical oncologist, Dr. Mcfadden, who eventually wanted to treat him with systemic therapy for what appears to be a stage IV lung cancer and I was consulted since the patient appears to have an obstructed bronchus causing a left lung collapse. The patient also indicated that he lives in [place], [place] and his preference would be to be treated closer to home and he says the closest facility is [facility] in [place], [place] [address] CONSULTATION Name: KEANU KAPOOR Room: [address] DIS IN M.R.#: [id number] Admission: 01/30/18 Attend Phys: Huang Rodarte MD Discharge: 02/07/18 Date of : 62 Report #: [id number] PAST MEDICAL HISTORY AND PAST SURGICAL HISTORY: Includes hypertension, pleural effusion, history of congestive heart failure, hyperlipidemia, possible diabetes, possibly chronic kidney disease, bicuspid aortic valve. FAMILY HISTORY: History of kidney stones in the family. MEDICATIONS: Glipizide, 5 mg hydrocodone/325 mg acetaminophen as needed, metoprolol, insulin as needed, pantoprazole, docusate as needed, albuterol as needed. ALLERGIES: METFORMIN, SEEMS TO BE AN ADVERSE REACTION CAUSING RENAL FAILURE. SOCIAL HISTORY: He chews tobacco and chews about 4-5 packs a day. He says he quit chewing tobacco about 4-5 days ago. He also was a light tobacco smoker. He drinks 1-2 beers on special occasions. 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 REVIEW OF SYSTEMS: CONSTITUTION: The patient has no complaints of sweats. HEAD, EARS, NOSE, AND THROAT: He had no complaints of facial swelling. EYES: He had no complaints of photophobia. RESPIRATORY: He has had some shortness of breath over the last few weeks and consistent with his presumed lung cancer. CARDIOVASCULAR: He had no complaints of recent palpitations. GASTROINTESTINAL: He had no complaints of recent vomiting or nausea. ENDOCRINE: He had no complaints of heat intolerance. GENITOURINARY: He had no complaints of hematuria. MUSCULOSKELETAL: He has no gait problems. SKIN: He had no rash. NEUROLOGIC: He had no facial asymmetry. HEMATOLOGIC: He had no bruising. PSYCHIATRIC: He had no confusion. PHYSICAL EXAMINATION: VITAL SIGNS: Temperature 98.9 degrees Fahrenheit, pulse 87, respirations 16, blood pressure 116/82. LYMPH NODES: He has no cervical, supraclavicular lymphadenopathy. GENERAL/PSYCHIATRIC: He was alert, oriented and in no acute distress. HEAD, EARS, NOSE AND THROAT: Mouth had no visible lesions. EYES: Pupils were equal, round, reactive to accommodation. HEART: Had a regular rate and rhythm without murmur. LUNGS: The patient had diminished breath sounds on the left side. The right lung was clear to auscultation. ABDOMEN: Not tender, spleen was not palpable. Liver was at the costal margin. EXTREMITIES: [place] [address] CONSULTATION Name: KEANU KAPOOR Room: [address] IN R.#: [id number] Admission: 01/30/18 Attend Phys: Huang Rodarte MD Discharge: 02/07/18 Date of : 62 Report #: [id number] NEUROLOGIC: Cranial nerves II to XII were intact. Sensation was intact. The patient had 5/5 strength throughout. LABORATORY DATA: From 02/06/2018, sodium 137, potassium 3.7, BUN 23, creatinine 1.2. ALT 62, alkaline phosphatase elevated at 169. The hemoglobin A1c was 7.8 from 02/02/2018. From 02/06/2018, white blood count 11.6, hemoglobin 13.5, platelets 329,000. ASSESSMENT AND PLAN: The patient has findings consistent with metastatic lung cancer. Tentatively, the patient would probably benefit from palliative radiation therapy to the obstructed bronchus. He was also assessed for systemic therapy such as chemotherapy, by Dr. Mcfadden. The patient lives in [place], [place] and it is a long distance for him to come for daily treatments to [place] or [facility]. His preference was to go to Ronen Bonilla at [facility], so a referral will be placed so he can be seen as an outpatient there and be evaluated for possible palliative radiation therapy to that obstructed bronchus. Thank you for this consult. <ELECTRONICALLY SIGNED> By: Demetrio Gonzalez MD 02/19/18 [id number] Gonzalez MD /nt
--- NOTE | 2018-02-23 08:41 | CON ---
[address] [address] CONSULTATION Name: KEANU KAPOOR Room: [address] IN M.R.#: [id number] Admission: 01/30/18 Attend Phys: Huang Rodarte MD Discharge: 02/07/18 Date of : 62 Report #: [id number] THIS REPORT FOR: //name// CC: Huang Brown DATE OF SERVICE: 02/02/2018 REASON FOR NEPHROLOGY CONSULTATION: Acute kidney injury. REASON FOR ADMISSION: Lung collapse and full bronchial obstruction. HISTORY OF PRESENT ILLNESS: This is a 57-year-old male who was directly transferred from another facility because he was found to have left-sided lung collapse and unrelenting cough and a possibility of left-sided lung carcinoma for further workup for that. When he came in to [facility], he was found to have a calcium of 10.8 and a creatinine level of 2.1 in addition to other labs, and he was also complaining of left back pain and on his CT scan of his abdomen he was also found to have pelvic lytic lesions. We started him on IV fluids and with this his creatinine has come down to 1.6. The patient reports that up until a few months ago he was taking NSAIDs and he has not followed up with any doctor for 18 years and went to a physician about a month ago. When he went to his general doctor a month ago, he was diagnosed with diabetes, hypertension and was also started on Lasix because of some fluid around his lungs. He said that they checked his creatinine initially and then rechecked his creatinine after being on Lasix and as well as losartan and hydrochlorothiazide, and they said that his creatinine is getting worse and asked him to go to the hospital. He also was asked to stop the Lasix at that point. The history on that is not very clear. The patient has been urinating well and his creatinine, as I said, has come down to 1.6 in this admission, and Hematology is following him and he is supposed to get a bronchoscopy tomorrow to further evaluate this endobronchial lesion as well as for biopsy of the lesion. The patient has also lost about 50 pounds of weight in the last month and the patient attributes that to Lasix. He reports no history of any kidney stones. His calcium level has also improved to 10.1 from 10.8. ALLERGIES: No known drug allergies. REVIEW OF SYSTEMS: The patient has been having this unrelenting cough. He also had hemoptysis. He was also having some left-sided back pain. Other review of systems was done and they were negative. PAST MEDICAL AND SURGICAL HISTORY: Includes history of hypertension, pleural effusion, congestive heart failure, hyperlipidemia, possible diabetes type 2, possibly chronic kidney disease stage 3, hyperlipidemia, bicuspid [place] [address] CONSULTATION Name: KEANU KAPOOR Room: [address] IN .R.#: [id number] Admission: 01/30/18 Attend Phys: Huang Rodarte MD Discharge: 02/07/18 Date of : 62 Report #: [id number] FAMILY HISTORY: History of kidney stones in the family. HOME MEDICATIONS: It seems like he was on losartan, hydrochlorothiazide and Lasix, and other medications cannot be confirmed right now because we have not reconciled. SOCIAL HISTORY: He is a light tobacco smoker and chews tobacco about 4-5 packs a day, has been doing that for 40 years, and uses alcohol, 1-2 beers, on special occasions and no recreational drugs. He lives by himself. 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 PHYSICAL EXAMINATION: VITAL SIGNS: Blood pressure is 137/78, pulse rate 99, temperature is 36.6, respiratory rate 16 and he is on 2 liters nasal cannula. Pulse ox has been normal. GENERAL: Awake, alert, oriented, very pleasant. HEAD, EYES, EARS, NOSE AND THROAT: Nasal cannula in place. Mucous membranes are moist. NECK: No JVD. CHEST: Not much breath sounds could be heard, has very diminished breath sounds on the left side, but right side is clear and there are no crackles or wheezing. CARDIOVASCULAR: S1, S2 normal. No murmurs or rubs. ABDOMEN: Soft, nondistended, nontender. Bowel sounds are present. EXTREMITIES: There is no lower extremity edema, symmetrical lower extremities. NEUROLOGIC: Gross neurological function is intact. PSYCHIATRY: Mood and affect seems to be normal. LABORATORY DATA: From today, hemoglobin 13.3, WBC is 8.2. Sodium was 135, potassium was 4.3 and bicarbonate was 25, BUN was 40, creatinine was 1.3, calcium was 10.1, and other labs are reviewed. IMAGING: Abdominopelvic CT and chest x-ray were reviewed. ASSESSMENT AND PLAN: 1. Acute kidney injury on possibly chronic kidney disease stage 3 due to Lasix, losartan and hydrochlorothiazide and hypercalcemia: Baseline creatinine is not known. I have asked nursing to find out his baseline creatinine. In the meantime, his creatinine has improved and has become stable around 1.6. I will continue normal saline at 75 mL an hour for another 12 hours. Avoid nephrotoxic agents. There was no evidence of any obstruction on the abdominopelvic CT and there was a right-sided renal cyst. His hypercalcemia also has now improved. 2. Hypercalcemia: This could be paraneoplastic syndrome because of possibly lung malignancy, but we will also check serum immunofixation, serum kappa to lambda light chain ratio. Calcium for now has improved to 10.1 today. The patient was dehydrated, him being on Lasix for some time. He was also [place] [address] CONSULTATION Name: KEANU KAPOOR Room: [address]#: [id number] Admission: 01/30/18 Attend Phys: Huang Rodarte MD Discharge: 02/07/18 Date of : 62 Report #: [id number] 3. Hypertension: Blood pressure is currently controlled. I would avoid KELLY inhibitors, ARB and diuretics. He is on amlodipine and metoprolol, which should be okay for now. 4. Left-sided lung collapse: The patient is supposed to get further evaluation with bronchoscopy to further evaluate this endobronchial lesion and for biopsy. 5. Adrenal nodules: Hematology is following the patient. I will defer further management to them and he may have to see Endocrinology once he gets out of the hospital. Thank you for this consultation. We will continue to follow along with you. I have discussed the plan with the patient as well as the patient's nurse, Agustín. <ELECTRONICALLY SIGNED> By: Korina Lawson MD 02/23/18 0841 1103 [id number] justin Saini
--- NOTE | 2018-02-24 10:09 | PATH ---
[address] [address] PATHOLOGY RPT PROCEDURE Name: ROMAN KAPOOR Room: [address] IN .R.#: [id number] Admission: 01/30/18 Date of : 62 Discharge: 02/07/18 Report #: [id number] Path Case #: [id number] [facility] Accession Number: [id number] . 01 Material submitted: . LEFT UPPER LUNG BIOPSY . 01 Clinical history: . Pneumonia, hypoxia, renal failure, fluid in L lung . 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 SEE COMMENT. QMS/02/07/2018 . 02 Comment: The biopsies show aggregates of blood with unattached malignant cells and scant intact bronchial epithelium. A panel of properly controlled immunostains performed on A1 shows the malignant cells to have the following characteristics supporting the diagnosis: . P40 - Negative TTF-1 - Positive CK7 - Scattered positive . Reviewed with Dr. Saran Seaman, who agrees with the diagnosis. . The accompanying KENNEDY bronchial washings was suspicious for malignancy and the KENNEDY brushings was inconclusive with atypical glandular cells of undetermined significance present ([id number] -[id number]). . Preliminary findings discussed with Dr. Márquez at approximately 13:25 on 02/06/2018. . (GÓMEZ:niranjan/mml; 02/07/2018) . 02 Electronically signed: . Miguelito Belle MD, Pathologist NPI- [id number] . 01 Gross description: . Received in formalin labeled "Roman Kapoor LUL," are multiple fragments of dark vo soft tissue measuring 1.2 x 0.3 x 0.2 cm in aggregate dimensions. The specimen is filtered and entirely submitted in cassette A1. (TSD; 02/03/2018) TOB/TOB . 02 [place] [address] PATHOLOGY RPT PROCEDURE Name: ROMAN KAPOOR Room: [address] IN [facility]#: [id number] Admission: 01/30/18 Date of : 62 Discharge: 02/07/18 Report #: [id number] Path Case #: [id number] Pathologist provided ICD-10: C34.12 . 02 CPT . 069645, [id number], G29030 Performed at: [id number] [facility] [address], [place], [place] [id number] MD Paul Padilla MD Phone: [phone] Performed at: 02 [facility] [address] [place], [place] [id number] MD Miguelito Belle MD Phone: [phone]
--- NOTE | 2018-06-02 07:46 | PATH ---
[address] [address] PATHOLOGY RPT PROCEDURE Name: KEANU KAPOOR Room: [address] IN [facility]#: [id number] Admission: 01/30/18 Date of : 62 Discharge: 02/07/18 Report #: [id number] Path Case #: [id number] Note [facility] Accession Number: [id number] TESTS RESULT FLAG UNITS REF RANGE LAB Clinician Provided Cytology Information No. of containers..01 Other (Miscellaneous) Source: KENNEDY BRUSHINGS DIAGNOSIS: 02 KENNEDY BRUSHINGS INCONCLUSIVE. ATYPICAL GLANDULAR CELLS OF UNDETERMINED SIGNIFICANCE (MOE) ARE PRESENT. Signed out by: 02 Ty Ledezma MD, Pathologist NPI- [id number] Performed by: 02 Zayda Wilson, Advanced Manufacturing Consultant (ASC) FLAG LEGEND: L-Low Normal,H-High Normal,LL-Alert Low,HH-Alert High <-Panic Low,>-Panic High,A-Abnormal,AA-Critical Abnormal Performed at: [address] [place] [address] Paul Padilla MD, [address] [place] [id number] Ty Ledezma MD, Specimen Comment: A duplicate report has been generated due to demographic updates. Performed at: [address] [address], [place], [place] [id number] MD Paul Padilla MD Phone: [phone]
--- NOTE | 2018-06-02 09:08 | PATH ---
[address] [address] PATHOLOGY RPT PROCEDURE Name: KEANU KAPOOR Room: [address] IN .R.#: [id number] Admission: 01/30/18 Date of : 62 Discharge: 02/07/18 Report #: [id number] Path Case #: [id number] Note [facility] Accession Number: [id number] TESTS RESULT FLAG UNITS REF RANGE LAB Clinician Provided Cytology Information No. of containers..01 Other (Miscellaneous) Source: [A] 01 BRONCH WASH KENNEDY DIAGNOSIS: [A] 02 BRONCH WASH KENNEDY SUSPICIOUS FOR MALIGNANCY. Signed out by: 02 Ty Ledezma MD, Pathologist NPI- [id number] Performed by: 02 Zayda Wilson, Business Asst ([facility]) Gross description: 01 30ML, RED, CLOUDY /LCS FLAG LEGEND: L-Low Normal,H-High Normal,LL-Alert Low,HH-Alert High <-Panic Low,>-Panic High,A-Abnormal,AA-Critical Abnormal Performed at: [address] [place] [address] Paul Padilla MD, [address] [place] [id number] Ty Ledezma MD, Specimen Comment: A duplicate report has been generated due to demographic updates. Performed at: [address] [address], [place], [place] [id number] MD Paul Padilla MD Phone: [phone]
== END 2018-02-07 14:19 | disposition home or self-care (01) | DRG 166 ==
LOC: M.2W 20:18
PROVIDERS: Internal Medicine; Internal Medicine Nephrology; ADMIT Internal Medicine
PROC: 0BBG8ZX Excision of Left Upper Lung Lobe, Via Natural or Artificial Opening Endoscopic, Diagnostic (ICD-10-PCS; principal; 2018-02-03)
DX: C34.12 Malignant neoplasm of upper lobe, left bronchus or lung (principal); J18.8 Other pneumonia, unspecified organism; N17.9 Acute kidney failure, unspecified; J98.19 Other pulmonary collapse; R04.2 Hemoptysis; C78.7 Secondary malignant neoplasm of liver and intrahepatic bile duct; C79.51 Secondary malignant neoplasm of bone; C79.70 Secondary malignant neoplasm of unspecified adrenal gland; I50.9 Heart failure, unspecified; E78.5 Hyperlipidemia, unspecified; I11.0 Hypertensive heart disease with heart failure; F17.200 Nicotine dependence, unspecified, uncomplicated; E83.52 Hypercalcemia; R91.8 Other nonspecific abnormal finding of lung field; E86.0 Dehydration; N28.1 Cyst of kidney, acquired; E27.8 Other specified disorders of adrenal gland; E11.65 Type 2 diabetes mellitus with hyperglycemia; R79.89 Other specified abnormal findings of blood chemistry; R59.0 Localized enlarged lymph nodes; R09.02 Hypoxemia; J44.9 Chronic obstructive pulmonary disease, unspecified; J39.8 Other specified diseases of upper respiratory tract; Z82.49 Family history of ischemic heart disease and other diseases of the circulatory system; Z84.1 Family history of disorders of kidney and ureter; Z79.899 Other long term (current) drug therapy; Z88.8 Allergy status to other drugs, medicaments and biological substances